=== PATIENT | female | born 1945 | race Caucasian/White ===

== ENCOUNTER → 2017-12-09 09:48 | Outpatient (CLI) | payer MEDICARE, SELFPAY ==
--- NOTE | 2017-12-09 09:54 | MM_ITS ---
MM Dig screening mamm BI w/CAD CAD Screening COMPARISON: Digital mammograms with CAD 11/16/2016 and 08/13/2015 INDICATION: There is a history of breast cancer patient's paternal aunt. This been previous biopsy left breast for benign disease. TECHNIQUE: Standard CC and MLO images were obtained. R2 CAD reviewed. FINDINGS: The breasts are composed primarily of fat with very minimal scattered fibroglandular densities in each breast. There is a benign-appearing calcification right breast. There is no suspicious lesion and there are no suspicious microcalcifications. IMPRESSION: Fatty type breast parenchyma with no suspicious lesion seen BI-RADS Category: 2 Benign Finding(s) RECOMMENDED FOLLOW-UP: 1YR - 1 YEAR FOLLOW-UP (A letter has been sent to the patient regarding results of the study.)
== END ==
PROVIDERS: PCP Internal Medicine; Visit Provider Internal Medicine
DX: Z12.31 Encounter for screening mammogram for malignant neoplasm of breast (principal)
CPT/HCPCS: 77067

== ENCOUNTER → 2018-06-02 09:21 | Outpatient (CLI) | payer MEDICARE, SELFPAY ==
--- NOTE | 2018-06-02 09:26 | CI_ITS ---
Cerebrovascular Exam Indications: 782.0 Disturbance of skin sensation. IMPRESSIONS 1. The bilateral vertebral arteries are patent with normal antegrade flow. 2. Study suggests less than 20% stenosis involving the right internal carotid artery and the left internal carotid artery. 3. Tortuous carotid arteries seen bilaterally. History: Risk factors: Hypertension. Carotid duplex study. Complete study and Doppler flow study including spectral analysis, color and byrd scale imaging. Location: Vascular laboratory. Patient status: Outpatient. Tables: Arterial flow: + +--------+--------+ Location V sys V ed + +--------+--------+ Right CCA - proximal 50.3cm/s 11.8cm/s + +--------+--------+ Right CCA - distal 47.1cm/s 8.6cm/s + +--------+--------+ Right ECA 67.6cm/s -------- + +--------+--------+ Right ICA - proximal 36.9cm/s 15.7cm/s + +--------+--------+ Right ICA - mid 83.3cm/s 28.3cm/s + +--------+--------+ Right ICA - distal 75.4cm/s 19.6cm/s + +--------+--------+ Right vertebral 34.6cm/s -------- + +--------+--------+ Left CCA - proximal 77.8cm/s 14.9cm/s + +--------+--------+ Left CCA - distal 45.6cm/s 13.4cm/s + +--------+--------+ Left ECA 55.8cm/s -------- + +--------+--------+ Left ICA - proximal 48.7cm/s 15.7cm/s + +--------+--------+ Left ICA - mid 61.3cm/s 18.1cm/s + +--------+--------+ Left ICA - distal 108cm/s 30.2cm/s + +--------+--------+ Left vertebral 39.3cm/s -------- + +--------+--------+ Velocity ratios: + + + + + + Right, V sys Right, V ed Left, V sys Left, V ed + + + + + + Max ICA/dist CCA 1.77 3.28 2.37 2.25 + + + + + + (Report amended ) Electronically signed by: Slim Klein [id number]
== END ==
PROVIDERS: PCP Internal Medicine; Visit Provider Internal Medicine
DX: R20.2 Paresthesia of skin (principal); I63.89 Other cerebral infarction; R53.83 Other fatigue
CPT/HCPCS: 93880

== ENCOUNTER → 2019-01-31 09:31 | Outpatient (CLI) | payer MEDICARE, SELFPAY ==
--- NOTE | 2019-01-31 09:35 | MM_ITS ---
PROCEDURE: MM DIG SCREENING MAMM BI W/CAD Patient Age:74Y CLINICAL INDICATION: SCREENING a 74-year-old. No hormones but no new complaints. Previous excisional biopsy left breast.-with scar at 3 o'clock position Family history paternal aunt with breast cancer l COMPARISON: DMSB DIGITAL MAMM-SCREEN BILATERAL from 01/22/2012 DMSB DIG MAMM-SCREEN LEXY from 02/07/2013 DMSB DIG MAMM-SCREEN LEXY from 02/13/2014 DMDXUAVL DIG MAMM-DX UNI ADD VIEWS-LT from 02/23/2014 DMSB DIG MAMM-SCREEN LEXY from 08/13/2015 DMSB DIG MAMM-SCREEN LEYX W/CAD from 11/16/2016 [facility] MM Dig screening mamm BI w/CAD from 12/09/2017 TECHNIQUE: Standard CC and MLO images were obtained. R2 CAD reviewed. FINDINGS: Low density breast with generalized fatty replacement. No significant new areas of concern. No dominant or suspicious mass. No suspicious calcification. Bilateral follow-up study 1 year recommended. Right breast the: No significant new findings. The minimal linear area of density at central breast on CC view is likely related to skin fold similar feature as there are no corresponding findings on MLO view Left breast: No new findings of significant concern . Subtle stable area of nodularity inferior retroareolar region has been present on studies dating back to 2014, 2015, 2016 IMPRESSION: Stable bilateral mammogram. No significant new areas concern Bilateral follow-up 1 year recommended Low-density breast with generalized fatty replacement BI-RAD Category: 2 Benign Finding(s) FOLLOW-UP: 1YR 1 Year Follow-up (A letter has been sent to the patient regarding results of the study.) Dictated by: Moses Nelson MD 02/02/2019 08:29 Electronically signed by Moses Nelson MD in [place] 02/02/2019 08:29
== END ==
PROVIDERS: PCP Internal Medicine; Visit Provider Internal Medicine
DX: Z12.31 Encounter for screening mammogram for malignant neoplasm of breast (principal)
CPT/HCPCS: 77067

== ENCOUNTER → 2020-06-20 09:14 | Outpatient (CLI) | payer MEDICARE, SELFPAY ==
--- NOTE | 2020-06-20 09:20 | US_ITS ---
PROCEDURE: US ABDOMEN COMPLETE CLINICAL INDICATION: RUQ PAIN COMPARISON: No exams were available for comparison FINDINGS: PANCREAS: Visualized pancreas is unremarkable. The tail is partially obscured. LIVER: No focal liver lesions demonstrated. Diffuse increased echotexture of the liver is noted. Slightly coarsened appearance. No intrahepatic biliary ductal dilatation evident. The portal vein is patent. RIGHT KIDNEY: Unremarkable. Normal size and echogenicity. No hydronephrosis LEFT KIDNEY: Unremarkable. Normal size and echogenicity. No hydronephrosis GALLBLADDER: Few scattered calculi versus thick sludge was noted in the gallbladder. No pericholecystic fluid or gallbladder wall thickening. AORTA: No evidence of aneurysmal dilatation. SPLEEN: Unremarkable. Normal size and echogenicity ASCITES: None demonstrated. IMPRESSION: Diffuse increased coarsened echotexture of the liver, raises the concern of cirrhosis. Clinical and biochemical correlation is recommended. Sludge versus calculi in the gallbladder. No evidence of cholecystitis. Dictated by: Leesa Goodwin 06/20/2020 11:58 Leesa Goodwin in [place] 06/20/2020 11:58
== END ==
PROVIDERS: PCP Internal Medicine; Visit Provider Internal Medicine
DX: R10.11 Right upper quadrant pain (principal)
CPT/HCPCS: 76700

== ENCOUNTER → 2020-06-26 09:07 | Outpatient (CLI) | payer MEDICARE, SELFPAY | PROVIDERS: Visit Provider Internal Medicine Gastroenterology | DX: Z01.812 Encounter for preprocedural laboratory examination (principal); Z20.822 Contact with and (suspected) exposure to COVID-19; R10.11 Right upper quadrant pain | CPT/HCPCS: U0003 ==

== ENCOUNTER 2020-06-28 11:40 | Day surgery (SDC) | payer MEDICARE, SELFPAY ==
[2020-06-26 11:19] VITALS: BMI 19.4
[2020-06-28] VITALS (7 sets, daily range): BP systolic 122–166; BP diastolic 68–86; PULSE 57–76; RESP 18; TEMP 36.2–36.4; O2SAT 97–100
--- NOTE | 2020-06-28 13:07 | FL_ITS ---
PROCEDURE: FL ERCP CLINICAL INDICATION: POSSBILE PANCREATITIS COMPARISON: No exams were available for comparison FINDINGS: Fluoroscopy time: 1 minutes and 47 seconds. Four images are submitted showing contrast injected into the common bile duct with a wire in place there is reported common duct stone however, this is not well demonstrated on images submitted. Balloon sweep was performed on the final image. IMPRESSION: Status post ERCP with fluoroscopic guidance. Limited images submitted Dictated by: Slim Klein MD 06/28/2020 16:38 Slim Klein MD in [place] 06/28/2020 16:38
--- NOTE | 2020-06-28 13:42 | HMH.PROC ---
[facility] Procedure Note Procedure Note:: ERCP procedure Report: Endoscopic retrograde cholangiopancreatography with biliary sphincterotomy and balloon extraction Endoscopist: Gregory Lee II, MD Referring Physician: Varun Berumen MD Date of Procedure: June 28, 2020 Equipment: Olympus 180 side viewing endoscope duodenoscope Sedation: MAC sedation Indication: Mrs. Puga is a 75-year-old female who recently had right upper quadrant abdominal pain that was intense. She also had darkened urine. She did have an ultrasound of the abdomen that showed diffuse increase coarsened echotexture of the liver but there was no biliary ductal dilation or dilation of the intrahepatic biliary system. The patient's pancreas appeared to be unremarkable but the tail of the pancreas was obscured. The patient did have lab work that revealed a total bilirubin of 3.2, alkaline phosphatase of 541 and ALT level of 82. She did have borderline anemia with hemoglobin 10.9 and hematocrit 33.3. Her platelet count was normal at 367,000. Her symptoms gradually improved. She was referred for ERCP for possible choledocholithiasis. The patient did have a few scattered calculi versus thick sludge in her gallbladder. The patient does state that she had a jejunoileal bypass or bariatric surgery 30 to 40 years ago (Dr. Hyman) in [place]. Procedure: Prior to the procedure, a history and physical exam was performed, and patient's medications and allergies were reviewed. The risks, benefits and alternatives of the sedation and procedure were discussed with the patient. All questions were answered and informed consent was obtained. The patient was brought to the fluoroscopic radiology room. Patient identification and proposed procedure were verified by the physician and the nurse. The patient was placed in a swimmer's position between left lateral decubitus and prone position and the scope was passed under direct vision. Throughout the procedure, the patient's blood pressure, pulse, and oxygen saturations were monitored continuously. The ERCP was accomplished without difficulty. The patient tolerated the procedure well. Findings: The side-viewing duodenoscope was passed directly into the upper esophagus and advanced to the second portion of the duodenum. There was some bile gastropathy. There appeared to be prior surgery of the bulb of the duodenum. The conniventes and duodenal folds were redundant and effaced the ampulla making it difficult to visualize the ampulla. The ampulla was finally identified. The common bile duct was selectively cannulated. The cholangiogram did show a 10 mm common bile duct with normal filling of the intrahepatic biliary system. There was no attenuation of the biliary system. There was delayed drainage of bile from the biliary tree as well as delayed drainage of contrast. A generous biliary sphincterotomy was performed. Because of the overlying folds this was initially difficult to get clean access to the duodenal segment of the biliary system. Initially a smaller sphincterotomy was performed. A 10 mm balloon was swept through the system with the passage of bile and a small 3 mm dark yellow stone. There was also passage of moderate amount of fay yellow debris. Next, the sphincterotome was used to make the sphincterotomy slightly larger to improve decompression. The 10 to 12 mm sweeping balloon was again taken and passed to the hilum and swept through the system with easy passage into the duodenum with no further debris. The pancreatic duct was not cannulated intentionally. Impression: 1. Choledocholithiasis status post biliary sphincterotomy and balloon extraction Plan: I will discussed the findings with the patient and family. I would consider elective cholecystectomy because of symptomatic gallstones. I would like to obtain additional lab work to include hepatic fibrotic markers. If she does undergo elective cholecystectomy, I would like
[2020-06-28 14:43] LABS: Basophils % 0.3 % (0.1-2.0); Eosinophils # 0.1 K/mm3 (0.0-0.4); Eosinophils % 0.7 % (0.1-12.0); Hemoglobin 10.7 g/dL (12.2-16.2); Lymphocytes # 2.6 K/mm3 (0.7-4.5); Lymphocytes % 37.4 % (10-50); Mean Corpuscular HGB Conc 31.4 g/dL (31.8-35.4); Mean Corpuscular Hemoglobin 30.1 pg (27.0-31.2); Mean Corpuscular Volume 95.9 fl (81-99); Mean Platelet Volume 7.6 fl (7.4-10.4); Monocytes # 0.3 K/mm3 (0.1-1.0); Monocytes % 4.2 % (1.7-9.3); Neutrophils % 57.5 % (37.0-80.0); Platelet Count 324 K/mm3 (142-424); Red Blood Count 3.54 M/mm3 (4.20-5.40); Red Cell Distribution Width 14.4 % (11.5-17.5)
[2020-06-28 14:56] LABS: Chloride 113 mmol/L (98-107); Sodium 140 mmol/L (136-145)
[2020-06-28 14:59] LABS: Alanine Aminotransferase 32 U/L (12-78); Alkaline Phosphatase 223 U/L (38-126); Aspartate Amino Transferase 31 U/L (14-36); Bilirubin,Total 1.5 mg/dl (0.2-1.3); Blood Urea Nitrogen 10 mg/dl (7-17); Carbon Dioxide 22 mmol/L (22.0-30.0); Creatinine Clearance Estimated 42 mL/min (50-200); Estimated Glomerular Filt Rate 82 ml/min (>60); GFR (African American) 99 ML/MIN (>60); Iron 116 ug/dL (37-170)
[2020-06-28 15:00] LABS: Albumin Level 3.6 g/dl (3.5-5.0); Albumin/Globulin Ratio 1.5 (1.1-1.8); Calcium 8.8 mg/dl (8.4-10.2); Globulin 2.4 g/dL (1.3-3.2); Glucose 145 mg/dl (74-100)
[2020-06-28 15:09] LABS: Total Iron Binding Capacity 306 ug/dL (265-497)
[2020-06-28 15:37] LABS: Ferritin 41.8 ng/ml (11.1-264)
--- NOTE | 2020-06-28 17:45 | HMH.ANESCL ---
[facility] Anesthesia Checklist - Patient Identification Patient Identification: Arm Band - Structural Data Admitted From: Home Planned Operative Procedure/s: ERCP Consent for Planned Operative Procedure(s) Verified: Yes Verified Documents: Surgical Consent, History and Physical - NPO Status Verified Time NPO: 00:00 - Airway Assessment C-Spine Mobility Assessed: Yes TMJ Mobility Assessed: Yes Dentition: Good Dentition - Neurological Assessment Level of Consciousness: Awake, Alert - Anesthesia Plan Anesthesia Risk discussed: Yes Anesthesia Plan: Verified ASA Class: III Anesthesia Type: MAC [facility] History Medical History: Reports:: Cancer (uterine) Denies:: Diabetes Mellitus Type 1, Diabetes Mellitus Type 2, Internal Pacemaker, MRSA, Seizures *Have you ever received a pneumonia vaccine?: Yes *Have you received a flu vaccine this season?: Yes Anesthesia experience/problems:: none Other Surgeries: No: Pacemaker Amputation: No Fractures: No - *Social History Last grade of school completed: Advanced degree Smoking Status: Never smoker Alcohol Intake: never Substance Use Type: denies use *Occupational Status:: retired Housing: house Household Members: spouse *Travel in the last 8 weeks: None Family Hx:: Cancer
[2020-06-30 10:14] LABS: Hep A Ab, IgM Negative (Negative); Hepatitis B Core Antibody IgM Negative (Negative); Hepatitis B Surface Antigen Negative (Negative)
[2020-06-30 10:53] LABS: Hepatitis C Antibody <0.1 s/co ratio (0.0-0.9)
[2020-06-30 12:58] LABS: Anti-Centromere B Antibodies <0.2 AI (0.0-0.9); Anti-Jo-1 <0.2 AI (0.0-0.9); Anti-Smith Antibody <0.2 AI (0.0-0.9); Antichromatin Antibodies <0.2 AI (0.0-0.9); Antiscleroderma-70 Antibodies <0.2 AI (0.0-0.9); RNP Antibodies <0.2 AI (0.0-0.9); Sjogren's Anti-SS-A <0.2 AI (0.0-0.9); Sjogren's Anti-SS-B <0.2 AI (0.0-0.9)
[2020-06-30 13:53] LABS: Anti-DNA (DS) Ab Qn 7 IU/mL (0-9)
[2020-07-02 00:08] LABS: ALT (SGPT) P5P 31 IU/L (0-40); AST (SGOT) P5P 28 IU/L (0-40); Alpha 2-Macroglobulins, Qn 282 mg/dL (110-276); Apolipoprotein A-1 139 mg/dL (116-209); Bilirubin, Total 1.1 mg/dL (0.0-1.2); Cholesterol, Total 130 mg/dL (100-199); Fibrosis Score 0.82 (0.00-0.21); GGT 128 IU/L (0-60); Glucose 147 mg/dL (65-99); Haptoglobin 65 mg/dL (42-346); NASH Score 0.25 (0.25); Steatosis Grade S1 - Mild Steatosis (.); Steatosis Score 0.48 (0.00-0.30); Triglycerides 106 mg/dL (0-149)
[2020-07-02 04:13] LABS: Actin (Smooth Muscle) Antibody 5 Units (0-19); Angiotensin Converting Enzyme 47 U/L (14-82); Mitochondrial (M2) Antibody <20.0 Units (0.0-20.0)
== END 2020-06-28 14:49 | disposition home or self-care (01) ==
LOC: OUTP 11:43
PROVIDERS: PCP Internal Medicine; Visit Provider Internal Medicine Gastroenterology
DX: K80.50 Calculus of bile duct without cholangitis or cholecystitis without obstruction (principal); K74.60 Unspecified cirrhosis of liver; I10 Essential (primary) hypertension; F32.9 Major depressive disorder, single episode, unspecified; E03.9 Hypothyroidism, unspecified; K21.9 Gastro-esophageal reflux disease without esophagitis; Z88.0 Allergy status to penicillin; Z85.42 Personal history of malignant neoplasm of other parts of uterus; Z80.9 Family history of malignant neoplasm, unspecified; Z79.899 Other long term (current) drug therapy
CPT/HCPCS: 43262; 43264; 74330; 80053; 80074; 82164; 82728; 83540; 83550; 85025; 86225; 86235; 86255; 86256; J1610

== ENCOUNTER → 2020-09-06 10:18 | Outpatient (CLI) | payer MEDICARE, SELFPAY ==
--- NOTE | 2020-09-06 10:22 | MM_ITS ---
PROCEDURE: MM DIG SCREENING MAMM BI W/CAD Digital Breast Tomosynthesis Included CLINICAL INDICATION: SCREENING COMPARISON: MG DMSB DIG MAMM-SCREEN LEXY W/CAD from 11/16/2016 MG [facility] MM Dig screening mamm BI w/CAD from 12/09/2017 MG MM DIG SCREENING MAMM BI W/CAD from 01/31/2019 TECHNIQUE: Standard CC and MLO images and 3D Tomosynthesis was obtained. R2 CAD reviewed. FINDINGS: Mostly fatty replaced fibroglandular tissue. No malignant appearing mass or malignant-appearing microcalcification. No skin thickening or architectural distortion IMPRESSION: No evidence of malignancy BI-RAD Category: 1 Negative FOLLOW-UP: 1 YR 1 Year Follow-up (A letter has been sent to the patient regarding results of the study.) Dictated by: Slim Klein MD 09/13/2020 16:54 Slim Klein MD in [place] 09/13/2020 16:54
== END ==
PROVIDERS: PCP Internal Medicine; Visit Provider Internal Medicine
DX: Z12.31 Encounter for screening mammogram for malignant neoplasm of breast (principal)
CPT/HCPCS: 77063; 77067

== ENCOUNTER → 2020-12-06 18:25 | Outpatient (CLI) | payer MEDICARE, SELFPAY ==
[2020-12-06 20:16] LABS: Thyroid Stimulating Hormone 7.72 uIU/mL (0.465-4.68)
== END ==
PROVIDERS: Visit Provider Internal Medicine
DX: E03.9 Hypothyroidism, unspecified (principal)
CPT/HCPCS: 84443

== ENCOUNTER → 2021-03-19 12:11 | Outpatient (CLI) | payer MEDICARE, SELFPAY ==
[2021-03-19 14:29] LABS: Basophils % 0.6 % (0.1-2.0); Eosinophils # 0.1 K/mm3 (0.0-0.4); Eosinophils % 2.5 % (0.1-12.0); Hematocrit 38.9 % (37.0-47.0); Hemoglobin 11.7 g/dL (12.2-16.2); Lymphocytes # 2.2 K/mm3 (0.7-4.5); Lymphocytes % 38.7 % (10-50); Mean Corpuscular HGB Conc 30.1 g/dL (31.8-35.4); Mean Corpuscular Hemoglobin 31.1 pg (27.0-31.2); Mean Corpuscular Volume 103.4 fl (81-99); Monocytes # 0.4 K/mm3 (0.1-1.0); Monocytes % 6.5 % (1.7-9.3); Neutrophils # 2.9 K/mm3 (1.8-7.8); Neutrophils % 51.7 % (37.0-80.0); Platelet Count 348 K/mm3 (142-424); Red Blood Count 3.76 M/mm3 (4.20-5.40); Red Cell Distribution Width 14.1 % (11.5-17.5); White Blood Count 5.6 K/mm3 (4.8-10.8)
[2021-03-19 14:31] LABS: Chloride 105 mmol/L (98-107); Sodium 134 mmol/L (136-145)
[2021-03-19 14:32] LABS: Potassium 4.5 mmoL/L (3.5-5.1)
[2021-03-19 14:34] LABS: Alanine Aminotransferase 23 U/L (12-78); Alkaline Phosphatase 115 U/L (38-126); Anion Gap 12.5 mEq/L (5-15); Aspartate Amino Transferase 35 U/L (14-36); Bilirubin,Total 0.6 mg/dl (0.2-1.3); Blood Urea Nitrogen 13 mg/dl (7-17); Calcium 8.1 mg/dl (8.4-10.2); Carbon Dioxide 21 mmol/L (22.0-30.0); Cholesterol 137 mg/dl (140-200); Estimated Glomerular Filt Rate 82 ml/min (>60); GFR (African American) 99 ML/MIN (>60); Glucose 78 mg/dl (74-100); Triglycerides 66 mg/dl (30-150); VLDL Cholesterol 13 mg/dL (0-40)
[2021-03-19 14:35] LABS: Albumin Level 3.8 g/dl (3.5-5.0); Albumin/Globulin Ratio 1.7 (1.1-1.8); Chol/HDL Ratio 2.3 (1-3.5); Globulin 2.3 g/dL (1.3-3.2); HDL Cholesterol 60 mg/dl (40-60); Total Protein,Serum 6.1 g/dl (6.3-8.2)
[2021-03-19 14:46] LABS: Direct LDL Cholesterol 67.17 mg/dL (100-129)
[2021-03-19 15:05] LABS: Thyroid Stimulating Hormone 5.39 uIU/mL (0.465-4.68)
[2021-03-21 19:50] LABS: Vitamin B12 > 1000 pg/mL (239-931)
== END ==
PROVIDERS: Visit Provider Internal Medicine
DX: I10 Essential (primary) hypertension (principal); E03.9 Hypothyroidism, unspecified; E78.5 Hyperlipidemia, unspecified; D64.9 Anemia, unspecified; M15.0 Primary generalized (osteo)arthritis; F33.0 Major depressive disorder, recurrent, mild; Z85.42 Personal history of malignant neoplasm of other parts of uterus
CPT/HCPCS: 80053; 80061; 82607; 84443; 85025

== ENCOUNTER → 2021-06-23 16:45 | Outpatient (CLI) | payer MEDICARE, SELFPAY ==
[2021-06-23 17:19] LABS: Basophils # 0.1 K/mm3 (0-0.2); Basophils % 0.8 % (0.1-2.0); Eosinophils # 0.2 K/mm3 (0.0-0.4); Eosinophils % 3.4 % (0.1-12.0); Hematocrit 37.6 % (37.0-47.0); Hemoglobin 11.8 g/dL (12.2-16.2); Lymphocytes # 2.5 K/mm3 (0.7-4.5); Lymphocytes % 40.9 % (10-50); Mean Corpuscular HGB Conc 31.3 g/dL (31.8-35.4); Mean Corpuscular Hemoglobin 31.3 pg (27.0-31.2); Mean Corpuscular Volume 99.9 fl (81-99); Mean Platelet Volume 8.5 fl (7.4-10.4); Monocytes # 0.5 K/mm3 (0.1-1.0); Monocytes % 7.5 % (1.7-9.3); Neutrophils # 2.9 K/mm3 (1.8-7.8); Neutrophils % 47.5 % (37.0-80.0); Platelet Count 311 K/mm3 (142-424); Red Blood Count 3.76 M/mm3 (4.20-5.40); Red Cell Distribution Width 14.3 % (11.5-17.5); White Blood Count 6.1 K/mm3 (4.8-10.8)
[2021-06-23 18:22] LABS: Thyroid Stimulating Hormone 9.31 uIU/mL (0.465-4.68)
== END ==
PROVIDERS: PCP Internal Medicine; Visit Provider Internal Medicine
DX: D64.9 Anemia, unspecified (principal); E03.9 Hypothyroidism, unspecified
CPT/HCPCS: 84443; 85025

== ENCOUNTER → 2021-08-25 11:10 | Outpatient (CLI) | payer MEDICARE, SELFPAY ==
[2021-08-25 13:39] LABS: Thyroid Stimulating Hormone 4.98 uIU/mL (0.465-4.68)
== END ==
PROVIDERS: PCP Internal Medicine; Visit Provider Internal Medicine
DX: E03.9 Hypothyroidism, unspecified (principal)
CPT/HCPCS: 84443

== ENCOUNTER → 2021-09-15 13:45 | Outpatient (CLI) | payer MEDICARE, SELFPAY ==
[2021-09-15 14:18] LABS: Basophils % 0.7 % (0.1-2.0); Eosinophils # 0.2 K/mm3 (0.0-0.4); Eosinophils % 3.8 % (0.1-12.0); Hematocrit 39.7 % (37.0-47.0); Hemoglobin 11.6 g/dL (12.2-16.2); Lymphocytes % 34.5 % (10-50); Mean Corpuscular HGB Conc 29.4 g/dL (31.8-35.4); Mean Corpuscular Hemoglobin 30.3 pg (27.0-31.2); Mean Corpuscular Volume 103.2 fl (81-99); Mean Platelet Volume 9.3 fl (7.4-10.4); Monocytes # 0.3 K/mm3 (0.1-1.0); Monocytes % 5.6 % (1.7-9.3); Neutrophils # 3.1 K/mm3 (1.8-7.8); Neutrophils % 55.5 % (37.0-80.0); Platelet Count 282 K/mm3 (142-424); Red Blood Count 3.84 M/mm3 (4.20-5.40); Red Cell Distribution Width 14.4 % (11.5-17.5); White Blood Count 5.7 K/mm3 (4.8-10.8)
[2021-09-15 15:17] LABS: Alanine Aminotransferase 29 U/L (12-78); Albumin Level 3.7 g/dl (3.5-5.0); Albumin/Globulin Ratio 1.5 (1.1-1.8); Alkaline Phosphatase 130 U/L (38-126); Aspartate Amino Transferase 36 U/L (14-36); Bilirubin,Total 0.2 mg/dl (0.2-1.3); Blood Urea Nitrogen 16 mg/dl (7-17); Carbon Dioxide 22 mmol/L (22.0-30.0); Chloride 110 mmol/L (98-107); Chol/HDL Ratio 2.4 (1-3.5); Cholesterol 138 mg/dl (140-200); Estimated Glomerular Filt Rate 70 ml/min (>60); GFR (African American) 85 ML/MIN (>60); Globulin 2.4 g/dL (1.3-3.2); Glucose 85 mg/dl (74-100); HDL Cholesterol 57 mg/dl (40-60); Potassium 4.5 mmoL/L (3.5-5.1); Total Protein,Serum 6.1 g/dl (6.3-8.2); Triglycerides 73 mg/dl (30-150); VLDL Cholesterol 15 mg/dL (0-40)
[2021-09-15 15:47] LABS: Thyroid Stimulating Hormone 3.56 uIU/mL (0.465-4.68)
[2021-09-15 17:41] LABS: Anion Gap 11.5 mEq/L (5-15); Sodium 139 mmol/L (136-145)
[2021-09-17 08:32] LABS: Direct LDL Cholesterol 63 mg/dL (100-129)
== END ==
PROVIDERS: PCP Internal Medicine; Visit Provider Internal Medicine
DX: E03.9 Hypothyroidism, unspecified (principal); I10 Essential (primary) hypertension; E78.5 Hyperlipidemia, unspecified; M15.0 Primary generalized (osteo)arthritis; D64.9 Anemia, unspecified
CPT/HCPCS: 80053; 80061; 84443; 85025

== ENCOUNTER → 2021-11-24 11:30 | Outpatient (CLI) | payer MEDICARE, SELFPAY ==
[2021-11-24 18:57] LABS: Thyroid Stimulating Hormone 4.24 uIU/mL (0.465-4.68)
== END ==
PROVIDERS: PCP Internal Medicine; Visit Provider Internal Medicine
DX: E03.9 Hypothyroidism, unspecified (principal)
CPT/HCPCS: 84443

== ENCOUNTER 2021-12-30 06:09 | Day surgery (SDC) | payer MEDICARE, SELFPAY ==
[2021-12-25 14:10] VITALS: BMI 20.5
[2021-12-30] VITALS (7 sets, daily range): BP systolic 112–134; BP diastolic 48–76; PULSE 60–70; RESP 16–18; TEMP 36.1–36.2; O2SAT 94–100
== END 2021-12-30 08:35 | disposition home or self-care (01) ==
LOC: OR 06:11
PROVIDERS: PCP Internal Medicine; Visit Provider Ophthalmology
DX: H25.813 Combined forms of age-related cataract, bilateral (principal)
CPT/HCPCS: 66984; V2632

== ENCOUNTER 2022-01-20 06:09 | Day surgery (SDC) | payer MEDICARE, SELFPAY ==
[2022-01-20] VITALS (7 sets, daily range): BP systolic 109–145; BP diastolic 64–76; PULSE 61–64; RESP 14–18; TEMP 36.3–36.4; O2SAT 98–100
== END 2022-01-20 08:15 | disposition home or self-care (01) ==
LOC: OR 06:10
PROVIDERS: PCP Internal Medicine; Visit Provider Ophthalmology
DX: H25.813 Combined forms of age-related cataract, bilateral (principal)
CPT/HCPCS: 66984; V2632

== ENCOUNTER → 2022-03-18 11:46 | Outpatient (CLI) | payer MEDICARE, SELFPAY ==
[2022-03-18 13:27] LABS: Basophils % 0.4 % (0.1-2.0); Eosinophils # 0.2 K/mm3 (0.0-0.4); Hematocrit 38.4 % (37.0-47.0); Lymphocytes # 2.3 K/mm3 (0.7-4.5); Lymphocytes % 28.1 % (10-50); Mean Corpuscular HGB Conc 31.2 g/dL (31.8-35.4); Mean Corpuscular Hemoglobin 31.1 pg (27.0-31.2); Mean Corpuscular Volume 99.6 fl (81-99); Mean Platelet Volume 8.7 fl (7.4-10.4); Monocytes # 0.4 K/mm3 (0.1-1.0); Neutrophils # 5.4 K/mm3 (1.8-7.8); Neutrophils % 64.5 % (37.0-80.0); Platelet Count 313 K/mm3 (142-424); Red Blood Count 3.85 M/mm3 (4.20-5.40); Red Cell Distribution Width 14.7 % (11.5-17.5); White Blood Count 8.3 K/mm3 (4.8-10.8)
[2022-03-18 13:44] LABS: Alanine Aminotransferase 24 U/L (12-78); Albumin Level 3.8 g/dl (3.5-5.0); Albumin/Globulin Ratio 1.8 (1.1-1.8); Alkaline Phosphatase 113 U/L (38-126); Anion Gap 10.8 mEq/L (5-15); Aspartate Amino Transferase 31 U/L (14-36); Bilirubin,Total 0.5 mg/dl (0.2-1.3); Blood Urea Nitrogen 16 mg/dl (7-17); Calcium 8.4 mg/dl (8.4-10.2); Carbon Dioxide 23 mmol/L (22.0-30.0); Chloride 112 mmol/L (98-107); Chol/HDL Ratio 2.2 (1-3.5); Cholesterol 135 mg/dl (140-200); Estimated Glomerular Filt Rate 97 ml/min (>60); GFR (African American) 118 ML/MIN (>60); Globulin 2.1 g/dL (1.3-3.2); Glucose 84 mg/dl (74-100); HDL Cholesterol 62 mg/dl (40-60); Magnesium 1.8 mg/dl (1.6-2.3); Potassium 3.8 mmoL/L (3.5-5.1); Sodium 142 mmol/L (136-145); Total Protein,Serum 5.9 g/dl (6.3-8.2); Triglycerides 97 mg/dl (30-150); VLDL Cholesterol 19 mg/dL (0-40)
[2022-03-18 13:54] LABS: Direct LDL Cholesterol 57.28 mg/dL (100-129)
[2022-03-18 14:14] LABS: Thyroid Stimulating Hormone 5.44 uIU/mL (0.465-4.68)
== END ==
PROVIDERS: PCP Internal Medicine; Visit Provider Internal Medicine
DX: E03.9 Hypothyroidism, unspecified (principal); I10 Essential (primary) hypertension; E83.42 Hypomagnesemia; D64.9 Anemia, unspecified; F33.0 Major depressive disorder, recurrent, mild; M15.0 Primary generalized (osteo)arthritis
CPT/HCPCS: 80053; 80061; 83735; 84443; 85025

== ENCOUNTER → 2022-05-22 16:52 | Outpatient (CLI) | payer MEDICARE, SELFPAY ==
[2022-05-22 18:15] LABS: Thyroid Stimulating Hormone 3.55 uIU/mL (0.465-4.68)
== END ==
PROVIDERS: PCP Internal Medicine; Visit Provider Internal Medicine
DX: E03.9 Hypothyroidism, unspecified (principal)
CPT/HCPCS: 84443

== ENCOUNTER 2022-08-27 13:18 | Emergency (ER) | payer MEDICARE, SELFPAY ==
[2022-08-27 13:19] VITALS: BP 144/68; PULSE 80; RESP 17; TEMP 36.6; O2SAT 98; BMI 20.5
[2022-08-27 13:30] VITALS: BP 125/77; PULSE 75; O2SAT 98
[2022-08-27 14:00] VITALS: BP 126/60; PULSE 74; O2SAT 96
--- NOTE | 2022-08-27 14:04 | HMH.EDGENADL ---
Discharge Plan Disposition Patient Disposition: Home, Self-Care Condition: Fair Chief Complaint: PAIN Prescriptions Prescriptions: No Action ibuprofen 800 MG tablet 800 mg PO TIDP PRN (Reason: Moderate Pain) levothyroxine 125 MCG tablet 125 mcg PO DAILY losartan 100 MG tablet 100 mg PO DAILY bupropion HCl 200 MG tablet sustained-release 12 hr 200 mg PO DAILY omeprazole magnesium 20 MG tablet,delayed release (DR/EC) 40 mg PO DAILY duloxetine 60 MG capsule,delayed release(DR/EC) 60 mg PO DAILY magnesium oxide 200 MG tablet 400 mg PO DAILY cyanocobalamin (vitamin B-12) 2,500 MCG tablet 2,500 mcg PO DAILY Referrals Follow up/Referrals: Varun Berumen MD [Primary Care Provider] - See instructions Daniel Alston DO [Staff Physician] - See instructions Activity Restrictions/Add. Instructions Additional Instructions/Restrictions: At this time is felt you are safe to be discharged home. If new or worsening symptoms please do not hesitate to return the emergency department. Please call and schedule an appointment with orthopedics. Clinical Impressions Clinical Impression: Fracture of proximal end of left humerus Discharge ED Provider: Jeff Concepcion General Adult HPI General Chief complaint: PAIN Stated complaint: Fall 08/26 LT arm pain Time Seen by Provider: 08/27/22 13:50 Mode of Arrival: Ambulatory Source of Information: Patient Limitations: No Limitations Description of Symptoms (Recalled from ER Triage Doc. by RN): PT C/O LEFT ARM/SHOULDER PAIN THAT RESULTED FROM A FALL YESTERDAY AFTERNOON. History of Present Illness HPI narrative: Patient is a 77-year-old with no pertinent past medical history presents emergency department for evaluation of traumatic injury sustained in a fall. History is obtained by patient at bedside. Patient was critiquing how uneven sidewalks were in [place] when she fell onto her left shoulder . Patient denies trauma to her head, hip, other traumatic complaints. She has moderate to severe pain in her left upper arm with inability to range it secondary to pain. No other acute complaints at this time. Patient does not take anticoagulation. Related Data Home Medications Medication Instructions Recorded Confirmed bupropion HCl 200 mg tablet,12 hr 200 mg PO DAILY Depression 06/26/20 12/25/21 sustained-release cyanocobalamin (vitamin B-12) 2,500 mcg PO DAILY Supplement 06/26/20 12/25/21 2,500 mcg tablet duloxetine 60 mg capsule,delayed 60 mg PO DAILY Depression 06/26/20 12/25/21 release ibuprofen 800 mg tablet 800 mg PO TIDP PRN Moderate Pain 06/26/20 12/25/21 levothyroxine 125 mcg tablet 125 mcg PO DAILY thyroid 06/26/20 12/25/21 losartan 100 mg tablet 100 mg PO DAILY bp 06/26/20 12/25/21 magnesium oxide 400 mg PO DAILY Supplement 06/26/20 12/25/21 omeprazole magnesium 20 mg 40 mg PO DAILY Reflux/Acid reflux 06/26/20 12/25/21 tablet,delayed release Allergies Allergy/AdvReac Type Severity Reaction Status Date / Time Penicillins Allergy Severe Difficulty Verified 12/29/21 10:13 Breathing [facility] Disclaimer: The information contained in this section may have been updated after the patient was seen, as this information can be updated by other users. Medical History (Updated 08/27/22 @ 15:34 by Jeff Concepcion MD) Hypertension Surgical History H/O gastric bypass H/O lumpectomy History of hysterectomy Family History Other Family history of myocardial infarction Lung cancer Social History Smoking Status: Never smoker second hand exposure: No alcohol intake: never substance use type: denies use current occupational status: retired Travel in the last 8 weeks: None household members: spouse housing: house current o
--- NOTE | 2022-08-27 14:08 | PC.NURSE ---
DR KAY AT BEDSIDE
--- NOTE | 2022-08-27 14:11 | XR_ITS ---
FINAL REPORT CLINICAL HISTORY: fall, pain lt shoulder FINDINGS: There is a humeral neck fracture. The distal portions of the humerus are without acute abnormality. There is soft tissue edema at the proximal arm. IMPRESSION: Humeral neck fracture. Reviewed, Interpreted and Dictated by Patty Helms MD Transcribed by Mario Bello Authenticated and [facility]
--- NOTE | 2022-08-27 14:11 | XR_ITS ---
FINAL REPORT CLINICAL HISTORY: fall, pain lt shoulder FINDINGS: 3 views of the left shoulder were obtained. There is no prior exam for comparison. There is a fracture of the humeral neck which is slightly impacted but not significantly displaced. There is no dislocation. There is mild degenerative joint disease. Soft tissues are normal. IMPRESSION: Humeral neck fracture as stated above. Reviewed, Interpreted and Dictated by Patty Helms MD Transcribed by Mario Bello Authenticated and [facility]
[2022-08-27 15:55] VITALS: BP 137/69; PULSE 72; RESP 17; TEMP 36.6; O2SAT 96
== END 2022-08-27 15:55 | disposition home or self-care (01) ==
PROVIDERS: Emergency Provider Emergency Medicine; PCP Internal Medicine
DX: S42.202A Unspecified fracture of upper end of left humerus, initial encounter for closed fracture (principal); W18.30XA Fall on same level, unspecified, initial encounter; I10 Essential (primary) hypertension
CPT/HCPCS: 73030; 73060; 99283

== ENCOUNTER → 2022-09-15 13:00 | Outpatient (CLI) | payer MEDICARE, SELFPAY ==
[2022-09-15 16:13] LABS: Alanine Aminotransferase 21 U/L (12-78); Albumin Level 4.1 g/dl (3.5-5.0); Albumin/Globulin Ratio 1.7 (1.1-1.8); Alkaline Phosphatase 146 U/L (38-126); Anion Gap 14.3 mEq/L (5-15); Aspartate Amino Transferase 22 U/L (14-36); Bilirubin,Total 0.4 mg/dl (0.2-1.3); Blood Urea Nitrogen 15 mg/dl (7-17); Calcium 9.2 mg/dl (8.4-10.2); Carbon Dioxide 26 mmol/L (22.0-30.0); Chloride 106 mmol/L (98-107); Chol/HDL Ratio 2.4 (1-3.5); Cholesterol 151 mg/dl (140-200); Estimated Glomerular Filt Rate 82 ml/min (>60); GFR (African American) 99 ML/MIN (>60); Globulin 2.4 g/dL (1.3-3.2); Glucose 90 mg/dl (74-100); HDL Cholesterol 62 mg/dl (40-60); Magnesium 1.8 mg/dl (1.6-2.3); Potassium 5.3 mmoL/L (3.5-5.1); Sodium 141 mmol/L (136-145); Total Protein,Serum 6.5 g/dl (6.3-8.2); Triglycerides 94 mg/dl (30-150); VLDL Cholesterol 19 mg/dL (0-40)
[2022-09-15 16:24] LABS: Direct LDL Cholesterol 71.94 mg/dL (100-129)
[2022-09-15 16:44] LABS: Thyroid Stimulating Hormone 3.61 uIU/mL (0.465-4.68)
== END ==
PROVIDERS: PCP Internal Medicine; Visit Provider Internal Medicine
DX: I10 Essential (primary) hypertension (principal); E03.9 Hypothyroidism, unspecified; E78.5 Hyperlipidemia, unspecified; E83.42 Hypomagnesemia; M15.0 Primary generalized (osteo)arthritis; Z85.42 Personal history of malignant neoplasm of other parts of uterus
CPT/HCPCS: 80053; 80061; 83735; 84443

== ENCOUNTER → 2022-09-22 09:26 | Outpatient (CLI) | payer MEDICARE, SELFPAY ==
--- NOTE | 2022-09-22 09:30 | XR_ITS ---
FINAL REPORT TECHNIQUE: Left humerus 4 views CLINICAL HISTORY: lt humerus fx COMPARISON: 08/27/2022 FINDINGS: Left humerus 4 views: 4 views of the left humerus reveal a fracture of the surgical neck of the humerus with impaction. When compared to prior films of August 27, 2022 there is no significant displacement of the fracture fragment. A small amount of callus formation is present. No new bony abnormalities are identified. IMPRESSION: Subacute fracture surgical neck of the humerus with mild callus formation. Reviewed, Interpreted and Dictated by Eitan Walker III, MD Transcribed by Lilliana Manning Authenticated and [facility]
== END ==
PROVIDERS: PCP Internal Medicine; Visit Provider Orthopaedic Surgery
DX: S42.202A Unspecified fracture of upper end of left humerus, initial encounter for closed fracture (principal)
CPT/HCPCS: 73060

== ENCOUNTER → 2022-10-27 08:57 | Outpatient (CLI) | payer MEDICARE, SELFPAY ==
--- NOTE | 2022-10-27 09:02 | XR_ITS ---
FINAL REPORT CLINICAL HISTORY: left humerus fx FINDINGS: 2 views of the left humerus were obtained. There is a mildly impacted transverse fracture through the surgical neck of the left humerus. There is no dislocation. The joint spaces appear intact. There is no acute soft tissue abnormality. IMPRESSION: Mildly impacted surgical neck fracture. Reviewed, Interpreted and Dictated by Dominik Shannon MD Transcribed by Dagoberto Brooke Authenticated and [facility]
== END ==
PROVIDERS: PCP Internal Medicine; Visit Provider Orthopaedic Surgery
DX: S42.202A Unspecified fracture of upper end of left humerus, initial encounter for closed fracture (principal)
CPT/HCPCS: 73060

== ENCOUNTER 2023-03-17 16:56 | Outpatient (CLI) | payer MEDICARE, SELFPAY ==
[2023-03-17 17:23] LABS: Basophils % 0.7 % (0.1-2.0); Eosinophils # 0.1 K/mm3 (0.0-0.4); Eosinophils % 2.5 % (0.1-12.0); Hematocrit 37.9 % (37.0-47.0); Hemoglobin 11.9 g/dL (12.2-16.2); Lymphocytes % 34.2 % (10-50); Mean Corpuscular HGB Conc 31.5 g/dL (31.8-35.4); Mean Corpuscular Hemoglobin 31.2 pg (27.0-31.2); Mean Corpuscular Volume 99.3 fl (81-99); Monocytes # 0.4 K/mm3 (0.1-1.0); Monocytes % 6.4 % (1.7-9.3); Neutrophils # 3.2 K/mm3 (1.8-7.8); Neutrophils % 56.2 % (37.0-80.0); Platelet Count 244 K/mm3 (142-424); Red Blood Count 3.82 M/mm3 (4.20-5.40); Red Cell Distribution Width 14.2 % (11.5-17.5); White Blood Count 5.8 K/mm3 (4.8-10.8)
[2023-03-17 17:36] LABS: Chloride 108 mmol/L (98-107); Sodium 139 mmol/L (136-145)
[2023-03-17 17:37] LABS: Potassium 4.1 mmoL/L (3.5-5.1)
[2023-03-17 17:39] LABS: Alanine Aminotransferase 26 U/L (12-78); Alkaline Phosphatase 109 U/L (38-126); Anion Gap 11.1 mEq/L (5-15); Aspartate Amino Transferase 25 U/L (14-36); Bilirubin,Total 0.5 mg/dl (0.2-1.3); Blood Urea Nitrogen 14 mg/dl (7-17); Calcium 8.8 mg/dl (8.4-10.2); Carbon Dioxide 24 mmol/L (22.0-30.0); Cholesterol 128 mg/dl (140-200); Estimated Glomerular Filt Rate 81 ml/min (>60); GFR (African American) 98 ML/MIN (>60); Glucose 65 mg/dl (74-100); Triglycerides 86 mg/dl (30-150); VLDL Cholesterol 17 mg/dL (0-40)
[2023-03-17 17:40] LABS: Albumin Level 3.7 g/dl (3.5-5.0); Albumin/Globulin Ratio 1.7 (1.1-1.8); Chol/HDL Ratio 2.7 (1-3.5); Globulin 2.2 g/dL (1.3-3.2); HDL Cholesterol 47 mg/dl (40-60); Total Protein,Serum 5.9 g/dl (6.3-8.2)
[2023-03-17 17:51] LABS: Direct LDL Cholesterol 61.62 mg/dL (100-129)
[2023-03-17 18:09] LABS: Thyroid Stimulating Hormone 5.25 uIU/mL (0.465-4.68)
== END 2023-03-17 23:59 ==
LOC: LAB.DROPOF 16:57
PROVIDERS: PCP Internal Medicine; Visit Provider Internal Medicine
DX: R00.2 Palpitations (principal); I10 Essential (primary) hypertension; E78.5 Hyperlipidemia, unspecified; E03.9 Hypothyroidism, unspecified; F33.0 Major depressive disorder, recurrent, mild; M15.0 Primary generalized (osteo)arthritis; M47.812 Spondylosis without myelopathy or radiculopathy, cervical region; Z85.42 Personal history of malignant neoplasm of other parts of uterus
CPT/HCPCS: 80053; 80061; 84443; 85025

== ENCOUNTER 2023-03-29 13:14 | Outpatient (CLI) | payer MEDICARE, SELFPAY ==
[2023-03-29 17:33] LABS: Vitamin B12 575 pg/mL (239-931)
[2023-03-29 18:01] LABS: Folate > 20.00 ng/mL
== END 2023-03-29 23:59 ==
LOC: LAB.DROPOF 13:15
PROVIDERS: PCP Internal Medicine; Visit Provider Internal Medicine
DX: D75.89 Other specified diseases of blood and blood-forming organs (principal)
CPT/HCPCS: 82607; 82746

== ENCOUNTER 2023-09-14 16:58 | Outpatient (CLI) | payer MEDICARE, SELFPAY ==
[2023-09-14 16:55] LABS: Basophils % 0.5 % (0.1-2.0); Eosinophils # 0.1 K/mm3 (0.0-0.4); Eosinophils % 2.1 % (0.1-12.0); Hematocrit 39.8 % (37.0-47.0); Hemoglobin 12.6 g/dL (12.2-16.2); Lymphocytes # 2.2 K/mm3 (0.7-4.5); Mean Corpuscular HGB Conc 31.7 g/dL (31.8-35.4); Mean Corpuscular Hemoglobin 32.4 pg (27.0-31.2); Mean Corpuscular Volume 102.2 fl (81-99); Mean Platelet Volume 9.2 fl (7.4-10.4); Monocytes # 0.4 K/mm3 (0.1-1.0); Monocytes % 6.2 % (1.7-9.3); Neutrophils # 3.5 K/mm3 (1.8-7.8); Neutrophils % 56.1 % (37.0-80.0); Platelet Count 286 K/mm3 (142-424); Red Blood Count 3.89 M/mm3 (4.20-5.40); Red Cell Distribution Width 13.6 % (11.5-17.5); White Blood Count 6.2 K/mm3 (4.8-10.8)
[2023-09-14 17:44] LABS: Alanine Aminotransferase 22 U/L (12-78); Albumin/Globulin Ratio 1.6 (1.1-1.8); Alkaline Phosphatase 93 U/L (38-126); Anion Gap 13.9 mEq/L (5-15); Aspartate Amino Transferase 21 U/L (14-36); Bilirubin,Total 0.5 mg/dl (0.2-1.3); Blood Urea Nitrogen 18 mg/dl (7-17); Calcium 9.3 mg/dl (8.4-10.2); Carbon Dioxide 22 mmol/L (22.0-30.0); Chloride 110 mmol/L (98-107); Chol/HDL Ratio 2.6 (1-3.5); Cholesterol 160 mg/dl (140-200); Estimated Glomerular Filt Rate 70 ml/min (>60); GFR (African American) 84 ML/MIN (>60); Globulin 2.5 g/dL (1.3-3.2); Glucose 80 mg/dl (74-100); HDL Cholesterol 62 mg/dl (40-60); Potassium 4.9 mmoL/L (3.5-5.1); Sodium 141 mmol/L (136-145); Total Protein,Serum 6.5 g/dl (6.3-8.2); Triglycerides 109 mg/dl (30-150); VLDL Cholesterol 22 mg/dL (0-40)
[2023-09-14 18:06] LABS: Direct LDL Cholesterol 71.96 mg/dL (100-129)
[2023-09-14 18:27] LABS: Thyroid Stimulating Hormone 4.31 uIU/mL (0.465-4.68)
== END 2023-09-14 23:59 | disposition home or self-care (01) ==
LOC: LAB.DROPOF 16:58
PROVIDERS: PCP Internal Medicine; Visit Provider Internal Medicine
DX: I10 Essential (primary) hypertension (principal); E78.5 Hyperlipidemia, unspecified; E03.9 Hypothyroidism, unspecified; K74.60 Unspecified cirrhosis of liver
CPT/HCPCS: 80050; 80053; 80061; 84443; 85025

== ENCOUNTER 2023-09-20 07:43 | Outpatient (CLI) | payer MEDICARE, SELFPAY ==
--- NOTE | 2023-09-20 07:47 | US_ITS ---
FINAL REPORT CLINICAL HISTORY: Liver surveillance COMPARISON: None FINDINGS: Sonographic images of the right upper quadrant were obtained. The pancreas is partially obscured. There is a coarsened hepatic echotexture of uncertain etiology but could be seen with cirrhosis. There is no evidence of hepatic mass. The portal vein is patent with normal directional flow and measures 11 mm which is normal. The gallstone is seen in the gallbladder. There is gallbladder wall thickening measuring 5 mm. There is no evidence of biliary ductal dilatation.The common duct measures 5 mm. Limited images of the right kidney are unremarkable. IMPRESSION: Gallstone with gallbladder wall thickening, cholecystitis not excluded. If indicated, nuclear medicine hepatobiliary scan may be helpful. Coarsened hepatic echotexture. No evidence of hepatic mass. Reviewed, Interpreted and Dictated by Eitan Walker III, MD Transcribed by Marisol Oliveira Authenticated and [facility]
== END 2023-09-20 23:59 | disposition home or self-care (01) ==
LOC: RAD 07:44
PROVIDERS: PCP Internal Medicine; Visit Provider Internal Medicine
DX: K74.60 Unspecified cirrhosis of liver (principal); K80.20 Calculus of gallbladder without cholecystitis without obstruction
CPT/HCPCS: 76705

== ENCOUNTER 2024-03-23 13:50 | Outpatient (CLI) | payer MEDICARE, SELFPAY ==
[2024-03-23 13:20] LABS: Basophils % 0.6 % (0.1-2.0); Eosinophils # 0.1 K/mm3 (0.0-0.4); Eosinophils % 1.6 % (0.1-12.0); Hematocrit 36.7 % (37.0-47.0); Hemoglobin 11.5 g/dL (12.2-16.2); Lymphocytes # 1.8 K/mm3 (0.7-4.5); Lymphocytes % 26.8 % (10-50); Mean Corpuscular HGB Conc 31.3 g/dL (31.8-35.4); Mean Corpuscular Hemoglobin 30.1 pg (27.0-31.2); Mean Corpuscular Volume 96.1 fl (81-99); Mean Platelet Volume 10.6 fl (7.4-10.4); Monocytes # 0.5 K/mm3 (0.1-1.0); Neutrophils # 4.3 K/mm3 (1.8-7.8); Neutrophils % 62.6 % (37.0-80.0); Platelet Count 258 K/mm3 (142-424); Red Blood Count 3.82 M/mm3 (4.20-5.40); Red Cell Distribution Width 13.7 % (11.5-17.5); White Blood Count 6.8 K/mm3 (4.8-10.8)
[2024-03-23 14:19] LABS: Albumin Level 3.9 g/dl (3.5-5.0); Chloride 106 mmol/L (98-107); Potassium 4.1 mmoL/L (3.5-5.1); Sodium 140 mmol/L (136-145)
[2024-03-23 14:21] LABS: Blood Urea Nitrogen 14 mg/dl (7-17)
[2024-03-23 14:22] LABS: Alanine Aminotransferase 21 U/L (12-78); Albumin/Globulin Ratio 2.1 (1.1-1.8); Alkaline Phosphatase 84 U/L (38-126); Anion Gap 11.1 mEq/L (5-15); Aspartate Amino Transferase 25 U/L (14-36); Bilirubin,Total 0.4 mg/dl (0.2-1.3); Calcium 8.7 mg/dl (8.4-10.2); Carbon Dioxide 27 mmol/L (22.0-30.0); Chol/HDL Ratio 2.9 (1-3.5); Cholesterol 115 mg/dl (140-200); Estimated Glomerular Filt Rate 97 ml/min (>60); GFR (African American) 117 ML/MIN (>60); Globulin 1.9 g/dL (1.3-3.2); Glucose 78 mg/dl (74-100); HDL Cholesterol 40 mg/dl (40-60); Magnesium 1.6 mg/dl (1.6-2.3); Total Protein,Serum 5.8 g/dl (6.3-8.2); Triglycerides 93 mg/dl (30-150); VLDL Cholesterol 19 mg/dL (0-40)
[2024-03-23 14:53] LABS: Thyroid Stimulating Hormone 2.79 uIU/mL (0.465-4.68)
== END 2024-03-23 23:59 | disposition home or self-care (01) ==
LOC: LAB.DROPOF 13:50
PROVIDERS: PCP Internal Medicine; Visit Provider Internal Medicine
DX: I10 Essential (primary) hypertension (principal); E03.9 Hypothyroidism, unspecified; E78.5 Hyperlipidemia, unspecified; K74.60 Unspecified cirrhosis of liver; E83.42 Hypomagnesemia
CPT/HCPCS: 80053; 80061; 83735; 84443; 85025

== ENCOUNTER 2024-09-20 11:33 | Outpatient (CLI) | payer MEDICARE, SELFPAY ==
[2024-09-20 13:46] LABS: Hematocrit 35.0 % (37.0-47.0); Hemoglobin 10.7 g/dL (12.2-16.2); Immature Granulocytes % 0.3 %; Mean Corpuscular HGB Conc 30.6 g/dL (31.8-35.4); Mean Corpuscular Hemoglobin 30.0 pg (27.0-31.2); Mean Corpuscular Volume 98.0 fl (81-99); Nucleated Red Blood Cells % 0 %; Platelet Count 253 K/mm3 (142-424); Red Blood Count 3.57 M/mm3 (4.20-5.40); Red Cell Distribution Width-SD 47.7 fL; White Blood Count 6.7 K/mm3 (4.8-10.8)
[2024-09-20 15:00] LABS: Alanine Aminotransferase 18 U/L (12-78); Albumin Level 4.0 g/dl (3.5-5.0); Albumin/Globulin Ratio 2.1 (1.1-1.8); Alkaline Phosphatase 118 U/L (38-126); Anion Gap 11.1 mEq/L (5-15); Aspartate Amino Transferase 23 U/L (14-36); Bilirubin,Total 0.4 mg/dl (0.2-1.3); Blood Urea Nitrogen 23 mg/dl (7-17); Calcium 9.2 mg/dl (8.4-10.2); Carbon Dioxide 22 mmol/L (22.0-30.0); Chloride 110 mmol/L (98-107); Cholesterol 138 mg/dl (140-200); Creatinine,Serum 0.80 mg/dl (0.52-1.04); Estimated Glomerular Filt Rate 70 ml/min (>60); GFR (African American) 84 ML/MIN (>60); Globulin 1.9 g/dL (1.3-3.2); Glucose 72 mg/dl (74-100); HDL Cholesterol 51 mg/dl (40-60); Magnesium 1.6 mg/dl (1.6-2.3); Potassium 4.1 mmoL/L (3.5-5.1); Sodium 139 mmol/L (136-145); Total Protein,Serum 5.9 g/dl (6.3-8.2); Triglycerides 113 mg/dl (30-150)
[2024-09-20 16:27] LABS: Iron 96 ug/dL (37-170)
[2024-09-20 16:41] LABS: Total Iron Binding Capacity 345 ug/dL (265-497)
[2024-09-20 17:33] LABS: Vitamin B12 281 pg/mL (239-931)
== END 2024-09-20 23:59 | disposition home or self-care (01) ==
LOC: LAB.DROPOF 09-22 11:34
PROVIDERS: PCP Internal Medicine; Visit Provider Internal Medicine
DX: I10 Essential (primary) hypertension (principal); E78.5 Hyperlipidemia, unspecified; K74.60 Unspecified cirrhosis of liver; E83.42 Hypomagnesemia; D64.9 Anemia, unspecified
CPT/HCPCS: 36415; 80053; 80061; 82607; 83540; 83550; 83735; 85025